=== PATIENT | male | born 1940 | race Caucasian/White ===

== ENCOUNTER → 2016-08-20 | Outpatient (CLI) | payer OTHER, MEDICARE ==
[~2016-08-20] MED LIST: ALDACTONE 25MG25 M1 PO; ALPHA LIPOIC A200 M2 PO; ASPIRIN E.C. 8181 MG PO; CARDI-OMEGA1000 MG PO; CLEOCIN HCL300 MG PO; CO Q-1030 MG PO; COENZYME Q-1030 MG PO; CYMBALTA 30MG30 MG PO; CYMBALTA 60MG60 MG PO; DIGESTIVE PROB1 EACH PO; DULCOLAX S10 MG/SUPP RC; FISH OIL 1000MG1 CAP PO; FLOMAX 0.40.4 MG/CAP PO; GLUCOSAMINE COM1 TAB PO; GLUTATHIONE1 POW PO; IGG IV; LANOXIN 0.120.125 MG PO; LEADER NATURAL1 SGL PO; LIPITOR 40MG TA40 MG PO; LIPOIC ACID, DL1 POW PO; LOPRESSOR 225 MG/TAB PO; LYRICA 150MG C150 MG PO; LYRICA200 MG PO; MAGNESIUM CITR100 MG PO; MAGNESIUM250 MG; MG-200200 MG PO; MULTIPLE VITAMI1 CAP PO; NAPROXEN 3375 MG/TAB PO; NIACIN 100100 MG/TAB PO; NORCO 325 MG-51 TAB PO; NOVLOG SQ; OMEGA-3 FISH1200 MG PO; PRAVACHOL 40MG40 MG PO; RYTARY1 CER PO; SENOKOT S 50 MG1 TAB PO; SENOKOT8.6 MG PO; SINEMET 25/101 UDTAB PO; SINEMET CR 50 M1 TER PO; SSKI1 GM/ML PO; TYLENOL 325MG325 MG PO; URO-MAG140 MG PO; VITAMIN B COMPL1 T16 PO; VITAMIN B-12100 MCG; VITAMIN C500 MG PO; VITAMIN D 1001000 IU PO; ZESTRIL 5MG5 MG PO; [UNRECOGNIZED DRUG - CODE] PO
== END ==
LOC: COL.RAD 10:47
DX: S72.101D Unspecified trochanteric fracture of right femur, subsequent encounter for closed fracture with routine healing (principal); X58.XXXD Exposure to other specified factors, subsequent encounter